=== PATIENT | male | born 1945 | race Caucasian/White ===

== ENCOUNTER 2020-09-11 06:50 | Day surgery (SDC) | payer MEDICARE, BC ==
[~2020-09-11 06:50] MED LIST: Dextrose 5%-0.45% NaCl 1,000 ML IV SCH; Midazolam 1 MG/ML 2 ML SDV ONE; Sodium Chloride 0.9% 10 ML Syringe FLUSH PRN; fentaNYL 100 MCG/2 ML SDV ONE
[2020-09-11] MEDS ORDERED: fentaNYL 100 MCG/2 ML SDV IV ONE ×3 (06:51→08:14)
[2020-09-11] MEDS ORDERED: Midazolam 1 MG/ML 2 ML SDV IV ONE ×4 (06:51→08:21)
[2020-09-11 08:43] VITALS: BP 120/67; PULSE 67
--- NOTE | 2020-09-11 10:31 | OR ---
DATE: 09/11/2020 PROCEDURE: Total colonoscopy. INSTRUMENT USED: PCF-H190DL Olympus video colonoscope. PREMEDICATIONS: Fentanyl 100 mcg intravenous, Versed 2.5 mg intravenous. Nasal O2 cannula. The procedure was done under pulse oximetry, BP recording, and panel monitor. INDICATION: The patient with recent alteration in bowel habits, unexplained, and not responsive to medical measures. Colonoscopic examination is done for detection of any polypoid lesions and removal, endoscopic hemostasis therapy if needed. DESCRIPTION OF PROCEDURE: Initial rectal exam was unremarkable. Rigid anoscopy showed small internal hemorrhoids without bleeding from them. The colonoscope was passed with ease up to the ileocecal area. Photographs were taken of the normal-appearing cecum identified by landmarks of appendiceal orifice and double- bulged ileocecal folds. No bleeding was noted from any of the visualized areas at the commencement of the examination. The bowel preparation was found to be adequate, Bylas scale 2 in all the regions, total score 6. No stricture. No vascular ectasia. No large isolated ulcerations seen. No evidence of diffuse inflammatory bowel disease in the form of friability, contact bleeding, or ulcerations. No polyp or tumor mass identified. Probing the proximal sides of folds and flexures using adequate distention and clearing up the stool material, withdrawal of the scope was made, cecum to rectum time over 6 minutes. No bleeding was noted from any of the visualized areas at the completion of examination. IMPRESSION: Internal hemorrhoids. The patient tolerated the procedure well. [facility] [place] [facility][id number]
== END 2020-09-11 10:38 | disposition home or self-care (01) ==
LOC: DL.ENDO 06:50
PROVIDERS: ATTEND Internal Medicine Gastroenterology
DX: R19.4 Change in bowel habit (principal); K64.8 Other hemorrhoids; I10 Essential (primary) hypertension; E78.00 Pure hypercholesterolemia, unspecified; N40.0 Benign prostatic hyperplasia without lower urinary tract symptoms
CPT/HCPCS: J2250; J3010; J7042

== ENCOUNTER 2023-08-01 06:22 | Day surgery (SDC) | payer MEDICARE, BC ==
[2023-08-01] MEDS: Dextrose 5%-0.45% NaCl 1,000 ML IV SCH (06:43)
[2023-08-01] MEDS ORDERED: fentaNYL 100 MCG/2 ML SDV ONE (06:59)
[2023-08-01] MEDS ORDERED: Midazolam 1 MG/ML 2 ML SDV ONE (06:59)
[2023-08-01] MEDS: fentaNYL 100 MCG/2 ML SDV IV ONE ×2 (07:47→07:48)
[2023-08-01] MEDS: Midazolam 1 MG/ML 2 ML SDV IV ONE ×3 (07:48→07:50)
[2023-08-01 10:40] VITALS: BP 117/78; PULSE 68
== END 2023-08-01 09:25 | disposition home or self-care (01) ==
LOC: DL.ENDO 06:22
PROVIDERS: ATTEND Internal Medicine Gastroenterology
DX: K20.90 Esophagitis, unspecified without bleeding (principal); K22.70 Barrett's esophagus without dysplasia; K31.89 Other diseases of stomach and duodenum; K44.9 Diaphragmatic hernia without obstruction or gangrene; I10 Essential (primary) hypertension; E78.5 Hyperlipidemia, unspecified; D64.9 Anemia, unspecified
CPT/HCPCS: 43239; 87077; 88305; J2250; J3010; J7042

== ENCOUNTER → 2023-08-17 | Day surgery (SDC) | payer MEDICARE, BC ==
[~2023-08-17] MED LIST changes: -Dextrose 5%-0.45% NaCl 1,000 ML IV SCH; -Sodium Chloride 0.9% 10 ML Syringe FLUSH PRN
[2023-08-17] MEDS: Dextrose 5%-0.45% NaCl 1,000 ML IV SCH (05:39)
[2023-08-17] MEDS: fentaNYL 100 MCG/2 ML SDV IV ONE ×2 (06:32→06:33)
[2023-08-17] MEDS: Midazolam 1 MG/ML 2 ML SDV IV ONE ×3 (06:33→06:39)
[2023-08-17] MEDS: Sodium Chloride 0.9% 1,000 ML IV SCH (06:55)
[2023-08-17 08:39] VITALS: BP 123/69; PULSE 67
== END | disposition home or self-care (01) ==
LOC: DL.ENDO 05:07
PROVIDERS: ATTEND Internal Medicine Gastroenterology
DX: K64.8 Other hemorrhoids (principal); D50.9 Iron deficiency anemia, unspecified
CPT/HCPCS: 45378; J2250; J3010; J7030; J7042